=== PATIENT | female | born 1970 | race Caucasian/White ===

== ENCOUNTER 2020-03-11 10:50 | Day surgery (SDC) | payer OTHER ==
[~2020-03-11] VITALS: Ht 157.5 cm; Wt 77.6 kg
[~2020-03-11 10:50] MED LIST: GLUCOPHAGE1000 MG PO; HUMULIN N100 UNIT/1; IBUPROFEN800 MG PO; NORCO 5-325 TA1 EACH PO; NOVOLOG100 UNIT/2 SUB-Q; OZEMPIC1 MG/0.75 SUB-Q; VITAMIN D21250 MCG PO; WELLBUTRIN XL150 MG PO
--- NOTE | 2020-03-11 12:39 | NUR ---
03/11/20 1239 Cecilia Arroyo 1232 PT ARRIVED TO PACU ON RA AND TALKING TO RN. PT DENIES PAIN AND NAUSEA. VSS. 1235 PT ROLLED TO BACK AND IS SITTING IN HIGH FOLWERS.
--- NOTE | 2020-03-13 18:32 | PATH ---
[facility] [address] [facility] [place], [place] [address] Signed SPECIMEN(S): C COMPREHENSIVE FLOW CYTOMETRY ONLY, BM EDTA TUBE SPECIMEN(S): A BONE MARROW - CORE SPECIMEN(S): B BONE MARROW - ASPIRATION CLINICAL HISTORY: 49-year-old white female with elevated WBC, decreased RBC, decreased platelets. Evaluate for MDS/MPN overlap syndrome. D72.829 (elevated white blood cell count, unspecified) DIAGNOSIS SUMMARY: A. Peripheral blood, smear: - Mild normochromic anemia. - Mild leukocytosis with absolute mature neutrophilia. - Thrombocyopenia. B. Bone marrow, aspirate, clot section, and core biopsy: - Hypercellular marrow (90%) with trilineage hematopoiesis and occasional atypical megakaryocytes seen. - No increase in blasts. - Mild reticulin fibrosis (MF-1 of 3). - See Diagnostic Comment. DIAGNOSTIC COMMENT: The patient's history of leukocytosis since 2013 is noted. She now also has a mild anemia and significant thrombocytopenia. The bone marrow aspirate smears are hemodilute and aspiculate, limiting assessment for morphologic dysplasia by this modality, although the neutrophils which are present in the peripheral blood do not demonstrate overt dysplastic features. The bone marrow core biopsy is hypercellular for age (90%) and shows trilineage hematopoiesis with an estimated M:E ratio of approximately 2-3:1. Blasts are not increased. Scattered megakaryocytes are present, some of which demonstrate atypical nuclear segmentation. There is some loose clustering of megakaryocytes and fibrosis is mildly increased. 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 Of note, flow cytometry also demonstrated a small atypical T-cell population PATIENT NAME: CHE INFANTE PATHOLOGY DATE OF : 74 REPORT #: [id number] PHYSICIAN: TERESA PATHOLOGY PCP: ASH BEYER DO REPORT IS CONFIDENTIAL AND NOT TO BE RELEASED WITHOUT AUTHORIZATION [facility] [address] [place] [address] Signed (3%) of all events expressing dim CD2, dim CD5, and partial dim CD56. A CD3 immunohistochemical stain performed on the core biopsy demonstrates scattered and small clusters of T-cells, which are small in size. These overall T-cell findings are favored to represent a reactive process. As part of [facility] Quality Improvement Program, this case was reviewed by another member of our pathology staff. JCH:GP:slh:C2NR PERIPHERAL BLOOD: HEMOGRAM ([facility], 03/11/2020): WBC 11.8 K/uL, RBC 4.2 M/uL, HGB 11.0 g/dL, HCT 33.7%, MCV 80.3 fL, MCH 26 pg, MCHC 33 g/dL, RDW 19.4%, PLT 38 K/uL. MANUAL DIFFERENTIAL COUNT (200 cells, performed by pathologist): Segmented neutrophils 77%, band neutrophils 1%, lymphocytes 18%, monocytes 2%, eosinophils 1.5%, basophils 0.5%. The red cells are mildly decreased in number and are normochromic and appear normocytic, although we note the marginally decreased MCV. There is mild to moderate anisopoikilocytosis with occasional ovalocytes and rare microcytes. Occasional polychromatophilic erythrocytes are seen, but polychromasia is not significantly increased. Leukocytes are mildly increased in number and are composed predominantly of mature neutrophils which demonstrate granular cytoplasm and generally unremarkable nuclear segmentation. Overt dysplastic features are not seen. A few degenerating cells are present, although a definite circulating blast population is not appreciated. Lymphocytes are predominantly small and mature. There is no significant monocytosis, eosinophilia, or basophilia. Platelets are decreased in number and include occasional giant forms. BONE MARROW: BONE MARROW ASPIRATE: The bone marrow aspirate smears are hemodilute and aspiculate, reflecting predominantly peripheral blood elements. Due to significant hemodilution, a formal 200-cell count will not be performed. BONE MARROW CORE BIOPSY AND ASPIRATE CLOT SECTION CELL BLOCK: The bone marrow core biopsy is hypercellular for age (90%). Megakaryocytes are predominantly large and demonstrate lobulated nuclei. A few atypical appearing hypersegmented forms are seen. Some loose clustering of megakaryocytes of a few megakaryocytes is present. The estimated M:E ratio is approximately 2-3:1. Blasts do not PATIENT NAME: CHE INFANTE PATHOLOGY DATE OF : 74 REPORT #: [id number] PHYSICIAN: TERESA PATHOLOGY PCP: ASH BEYER DO REPORT IS CONFIDENTIAL AND NOT TO BE RELEASED WITHOUT AUTHORIZATION [address] [address] Signed appear increased, although occasional islands of proerythroblasts are seen. Trabecular bone is normal. The bone marrow clot sections demonstrate blood only. SPECIAL STAINS (with adequate controls): - Iron stain (aspirate smear): No bone marrow spicules are present. - Iron stain (block B1): No bone marrow spicules are present. - Iron stain (block A1): Stainable iron is not seen on this decalcified core biopsy. - Reticulin (block A1): Mildly increased reticulin fibrosis (MF-1 of 3). IMMUNOHISTOCHEMICAL STAINS (block A1): - CD34: No increase in blasts, rare cells staining. - CD117: No increase in blasts, few scattered cells staining, including mast cells. - MPO: Highlights myeloids precursors, confirming M:E ratio. - CD71: Highlights erythroid precursors, confirming M:E ratio. - Factor VIII: Gillespie scattered megakaryocytes, majority of which are large and lobulated, some loose clustering of a few megakaryocytes seen. Few smaller forms seen. - CD3: Positive in scattered and small aggregates of T-cells, small in size. - CD20: Positive in rare B-cells. - CD138: Scattered plasma cells seen, some in perivascular distribution, not significantly increased. IN SITU HYBRIDIZATION STAINS (block A1): - Teaticket: Stains scattered plasma cells, polytypic pattern. - Lambda: Stains scattered plasma cells, polytypic pattern. [facility] FLOW CYTOMETRY: Bone marrow aspirate, flow cytometry: - Hemodilute specimen. - Small population of atypical T-cells (3%) identified. - No increase in blasts. - No clonal B-cell population. - See comment. COMMENT: In summary, flow cytometry reveals a small population of T-cells (11% of lymphocytes, 3% of total events) expressing CD2(dim), CD3, CD5(dim), CD7, CD8, and CD56(dim,minor subset), and negative for CD4 and CD16. The phenotype is atypical. The significance of this small population of atypical T-cells is indeterminate, which can be seen in reactive PATIENT NAME: CHE INFANTE PATHOLOGY DATE OF : 74 REPORT #: [id number] PHYSICIAN: TERESA PATHOLOGY PCP: ASH BEYER DO REPORT IS CONFIDENTIAL AND NOT TO BE RELEASED WITHOUT AUTHORIZATION [facility] [address] [place], [place] [address] Signed conditions such as viral infection, autoimmune, etc., or a clonal T-cell proliferation. Correlation with clinical and morphologic findings is recommenced for full evaluation. FLOW CYTOMETRY ANALYSIS: FLOW DIFFERENTIAL (% Total CD45 vs. SSC gating): Myeloid 67%; Lymphoid 27%; Monocyte 3%; Dim CD45/Blast: 0.5%. Cell Count: 5.3 x 10*3/uL. POPULATION ANALYSIS: BLASTS: Analysis of the dim CD45 gate demonstrates 0.4% myeloblasts by CD34/CD117. LYMPHOID CELLS: The lymphocyte gate comprises 27% of total events and includes 86% T-cells with a CD4:CD8 ratio of 1.3:1. A small atypical T-cell population is detected (11% of lymphocytes, 3% of total events) expressing CD45 MOD, CD3 MOD, CD8 MOD, CD7 MOD, CD2 DIM, CD5 DIM, CD56 DIM (minor subset) while negative for CD4 and CD16. 3% of lymphocytes are polyclonal B-cells with a kappa:lambda ratio of 1.4:1. 9% of lymphocytes are NK-cells. MYELOID CELLS: The myeloid population comprises 67% of the total events. Changes suggestive of hemodilution are observed. MONOCYTES: The monocyte population comprises 3% of the total events. Monocytes are not increased. No aberrant immunophenotypic expression is detected. PLASMA CELLS: A significant plasma cell population is not detected in the neg-dimCD45/CD38 screening gate. ANTIBODIES USED: KAPPA, LAMBDA, CD20, CD10, CD19, CD23, CD38, FMC7, CD16, CD56, CD8, CD5, CD2, CD4, CD7, CD3, CD14, CD33, CD13, HLADR, CD34, CD117, CD15, CD45: TOTAL ANTIBODIES USED: 24. JLR FINAL DIAGNOSIS PERFORMED BY: Andria Segovia MD, Pathologist Mar 12 2020 1:16PM CYTOGENETICS: Pending, to be reported by addendum. FISH ANALYSIS: Pending, to be reported by addendum. MOLECULAR / PCR: Pending, to be reported by addendum. GROSS DESCRIPTION: PATIENT NAME: CHE INFANTE PATHOLOGY DATE OF : 74 REPORT #: [id number] PHYSICIAN: TERESA PATHOLOGY PCP: ASH BEYER DO REPORT IS CONFIDENTIAL AND NOT TO BE RELEASED WITHOUT AUTHORIZATION [address] [address] Signed The specimen has two parts. A. The specimen is received in formalin, labeled and designated "Infante, bone marrow core," and consists of a 2.2 cm long and 0.2 cm in diameter core of taylor firm bone, submitted entirely in (A1) after decalcification in Immunocal for approximately 1.5 hours. B. The specimen is received in formalin, labeled and designated "Arelis, bone marrow clot," and consists of a 1.6 x 1.6 x 0.3 cm fragment of red soft blood clot, submitted entirely in (B1). nz:KRISTIE:nas ADDITIONAL NOTES: This test was developed and its performance characteristics determined by [facility]. It has not been cleared or approved by the US Food and Drug Administration. The FDA does not require this test to go through premarket FDA review. This test is used for clinical purposes. It should not be regarded as investigational or for research. This laboratory is certified under the Clinical Laboratory Improvement Amendments (CLIA) as qualified to perform high complexity clinical laboratory testing. Immunohistochemical and/or in situ hybridization studies were performed on this case with the appropriate positive controls that react as expected. This test was developed and its performance characteristics determined by [facility]. It has not been cleared or approved by the U.S. Food and Drug Administration. The FDA has determined that such clearance or approval is not necessary. This test is used for clinical purposes. It should not be regarded as investigational or for research. [facility] is certified under the Clinical Laboratory Improvement Amendments of 1988 (CLIA) as qualified to perform high complexity clinical laboratory testing. In this case, certain antibodies were performed by both immunohistochemistry and flow cytometry analysis because flow cytometry analysis did not fully explain all the light microscopic findings. Immunohistochemistry aided in the analysis. Both methods are deemed medically necessary in this case. PERFORMING LABORATORY: Professional interpretation was performed by [facility], [facility], [address] [place] [address] (Principal Mechanical Engineer: Rafa Parsons M.D.; CLIA#: [id number]). PATIENT NAME: CHE INFANTE PATHOLOGY DATE OF : 74 REPORT #: [id number] PHYSICIAN: TERESA LUJAN PCP: ASH BEYER DO REPORT IS CONFIDENTIAL AND NOT TO BE RELEASED WITHOUT AUTHORIZATION [address] [place], [place] [address] Signed Professional interpretation was performed by [facility], [facility], [address] [place], [place] [address], [place] [address] (Principal Mechanical Engineer: Aguila Alcantara Jr., M.D., [facility]; IA#: [id number]). IMAGES: [id number]: [id number]: [id number] Diagnostician: Sara Perez MD Pathologist Electronically Signed 03/13/2020 Copies: ~ PATIENT NAME: CHE INFANTE PATHOLOGY DATE OF : 74 REPORT #: [id number] PHYSICIAN: TERESA LUJAN PCP: ASH BEYER DO REPORT IS CONFIDENTIAL AND NOT TO BE RELEASED WITHOUT AUTHORIZATION
== END 2020-03-11 12:55 | disposition home or self-care (01) ==
LOC: OPS 10:50 → DS 12:00 → OPS 12:00
PROVIDERS: Specialist
PROC: 079T3ZX Drainage of Bone Marrow, Percutaneous Approach, Diagnostic (ICD-10-PCS; 2020-03-11)
PROC: 07DR3ZX Extraction of Iliac Bone Marrow, Percutaneous Approach, Diagnostic (ICD-10-PCS; principal; 2020-03-11 12:00)
DX: D72.829 Elevated white blood cell count, unspecified (principal); D69.6 Thrombocytopenia, unspecified; D64.9 Anemia, unspecified; D75.89 Other specified diseases of blood and blood-forming organs; E11.22 Type 2 diabetes mellitus with diabetic chronic kidney disease; I12.9 Hypertensive chronic kidney disease with stage 1 through stage 4 chronic kidney disease, or unspecified chronic kidney disease; N18.3 Chronic kidney disease, stage 3 (moderate); F32.9 Major depressive disorder, single episode, unspecified; J45.909 Unspecified asthma, uncomplicated; Z87.891 Personal history of nicotine dependence; Z79.4 Long term (current) use of insulin; Z79.899 Other long term (current) drug therapy; Z88.5 Allergy status to narcotic agent
CPT/HCPCS: 80053; 83021; 83615; 84703; 85025; 85045; 86023; 86880; 99152; 99153; J2250; J3010; J7121

== ENCOUNTER 2020-11-05 06:16 | Day surgery (SDC) | payer OTHER ==
[~2020-11-05] VITALS: Ht 157.5 cm; Wt 71.4 kg
[~2020-11-05 06:16] MED LIST changes: +PROAIR HFA8.5 GM INH
--- NOTE | 2020-11-05 08:11 | NUR ---
11/05/20 0811 Emily Nelson 0806- PT TO PACU IN LL POSITION. RESPONDS TO VERBAL AND TACTILE STIMULI AND FALLS QUICKLY BACK TO SLEEP. BREATHING EASY AND UNLABORED. SPO2 >95% ON 3L O2 VIA NC. PT ENCOURAGED TO TAKE DEEP BREATHS AND PASS GAS. 0811- PT OPENS EYES PERIODICALLY. DENIES PAIN. SPO2 >95%. O2 TITRATED DOWN TO ROOM AIR. VSS.
--- NOTE | 2020-11-10 08:08 | OR ---
[facility] [address] [place], [place] [address] Signed DATE OF OPERATION: 11/05/2020 SURGEON: Ngozi Catalan MD PREOPERATIVE DIAGNOSES: 1. Thickened transverse colon on CT scan. 2. Rectal bleeding. POSTOPERATIVE DIAGNOSIS: A 4 mm polypoid lesion at 90 cm (transverse colon). PROCEDURE: Colonoscopy with hot biopsy. ESTIMATED BLOOD LOSS: None. 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 She is known to have issues with her white blood cells in her platelets. She had some rectal bleeding earlier in the year; however, none since August of this year. The CT scan back in March 2020 showed a thickened transverse colon. Consequently, she was asked to see me for a colonoscopy. She told me there is no family history of colon cancer or polyps. In the office, I gave her a pamphlet on colonoscopy. We looked at that together along with the risks including, but not limited to gas bloating, crampy abdominal pain, bleeding, perforation requiring surgery, and missed diagnosis. We also reviewed the need for IV conscious sedation. She had expressed understanding and wished to proceed. PROCEDURE NOTE: Ronald was taken into our endoscopy suite and placed in the left lateral decubitus position. She was given a total of 8 mg of Versed and 150 mcg of fentanyl to cover the case. A digital rectal exam was performed, and she had small external hemorrhoids. After this, the adult colonoscope was introduced and advanced all around into the cecum under direct visualization of camera without difficulty. Her prep was quite excellent. We could easily see the appendiceal orifice and the ileocecal valve. The scope was slowly withdrawn. We took pictures throughout for photodocumentation. We found what appears to be an inflammatory polypoid lesion at 90 cm. We believe this is in the mid to distal transverse colon. It was easily biopsied and destroyed completely with the hot biopsy forceps. The rest of the colon was unremarkable. The rectum was Electronically Signed By: NGOZI CATALAN MD 11/10/20 0808 PATIENT NAME: RONALD BEATTY OPERATIVE REPORT DATE OF : 74 REPORT #: [id number] PHYSICIAN: NGOZI CATALAN MD PCP: SEVERO BEYER DO REPORT IS CONFIDENTIAL AND NOT TO BE RELEASED WITHOUT AUTHORIZATION [address] [address] Signed unremarkable. Upon retroflexion of the scope, there was no additional pathology noted above the anal canal. After this, the gas was suctioned out. The colonoscope removed. Ronald tolerated her procedure quite well. RECOMMENDATIONS: I will see Ronald back in my office in 7 to 14 days to review her results. Ngozi Catalan MD ALB/MODL /[id number] cc: MD Severo Trujillo DO Copies: MELANIE CERVANTES MD, FRANK E DO ~ Electronically Signed By: NGOZI CATALAN MD 11/10/20 0808 PATIENT NAME: BEATTYRONALD OPERATIVE REPORT DATE OF : 74 REPORT #: [id number] PHYSICIAN: NGOZI CATALAN MD PCP: SEVERO BEYER DO REPORT IS CONFIDENTIAL AND NOT TO BE RELEASED WITHOUT AUTHORIZATION
--- NOTE | 2020-11-11 14:22 | PATH ---
[facility] [address] [place], [place] [address] Signed SPECIMEN(S): A COLON POLYP AT 100 CM SPECIMEN SOURCE: A. COLON POLYP AT 100 CM CLINICAL HISTORY: Rectal bleeding; thickened transverse colon, chronic elevated WBC; low platelets. Post-op: Polyp x1; external hemorrhoids. MICROSCOPIC DESCRIPTION: Histologic sections of all submitted blocks are examined by light microscopy. These findings, together with the gross examination, support the pathologic diagnosis. FINAL PATHOLOGIC DIAGNOSIS: Colon, polyp at 100 cm, polypectomy: - Fragments of tubular adenoma with ulcer and focal exuberant granulation tissue. - Negative for parasites or viral inclusions. - Negative for high-grade dysplasia or carcinoma. COMMENT: Sections demonstrate fragments of a tubular adenoma and ulcer with exuberantly reactive-appearing granulation tissue. No viral inclusions or parasitic organisms are seen on HE stain. Immunohistochemical stains (with appropriately staining controls) were performed. Pancytokeratin (AE1/AE3) is negative for invasive carcinoma. CMV stain is negative, arguing against CMV infection. As part of [facility] Quality Improvement Program, this case was reviewed by another member of our pathology staff. NAL:cml:C2NR GROSS DESCRIPTION: The specimen, labeled "Ronald Infante, #1," and designated on the requisition "colon polyp at 100 cm," is received in formalin and consists of three taylor soft tissue fragment(s) that measure 0.3-0.4 cm in greatest dimension. The specimen is entirely submitted in cassette (A1). FB (under the direct supervision of a pathologist) The Gross Description was prepared using a voice recognition system. The report was reviewed for accuracy; however, sound-alike word errors, addition and/or deletions may occur. If there is any question about this report, please contact Client Services. PATIENT NAME: RONALD INFANTE PATHOLOGY DATE OF : 74 REPORT #: [id number] PHYSICIAN: TERESA PATHOLOGY PCP: ASH BEYER DO REPORT IS CONFIDENTIAL AND NOT TO BE RELEASED WITHOUT AUTHORIZATION [facility] [address] [place], [place] [address] Signed ADDITIONAL NOTES: Immunohistochemical and/or in situ hybridization studies were performed on this case with the appropriate positive controls that react as expected. This test was developed and its performance characteristics determined by [facility]. It has not been cleared or approved by the U.S. Food and Drug Administration. The FDA has determined that such clearance or approval is not necessary. This test is used for clinical purposes. It should not be regarded as investigational or for research. [facility] is certified under the Clinical Laboratory Improvement Amendments of 1988 (CLIA) as qualified to perform high complexity clinical laboratory testing. PERFORMING LABORATORY: The technical component was performed by [facility], [address] [place] [address] (Wet Process Head Miller: Lina Nicolas MD; CLIA# [id number]). [facility], [address] [address] (CLIA# [id number]). Diagnostician: María Mcmahan MD Pathologist Electronically Signed 11/11/2020 Copies: ~ PATIENT NAME: RONALD INFANTE PATHOLOGY DATE OF : 74 REPORT #: [id number] PHYSICIAN: TERESA PATHOLOGY PCP: ASH BEYER DO REPORT IS CONFIDENTIAL AND NOT TO BE RELEASED WITHOUT AUTHORIZATION
== END 2020-11-05 08:40 | disposition home or self-care (01) ==
LOC: OPS 06:16 → DS 06:19 → OPS 06:45 → DS 06:45 → OPS 08:40
PROVIDERS: ATTEND Colon & Rectal Surgery
PROC: 0DBL8ZX Excision of Transverse Colon, Via Natural or Artificial Opening Endoscopic, Diagnostic (ICD-10-PCS; principal; 2020-11-05 06:45)
DX: K62.5 Hemorrhage of anus and rectum (principal); D12.3 Benign neoplasm of transverse colon; K64.4 Residual hemorrhoidal skin tags; I12.9 Hypertensive chronic kidney disease with stage 1 through stage 4 chronic kidney disease, or unspecified chronic kidney disease; N18.30 Chronic kidney disease, stage 3 unspecified; E11.22 Type 2 diabetes mellitus with diabetic chronic kidney disease; K21.9 Gastro-esophageal reflux disease without esophagitis; J45.909 Unspecified asthma, uncomplicated; E28.2 Polycystic ovarian syndrome; F41.9 Anxiety disorder, unspecified; Z87.891 Personal history of nicotine dependence; Z79.4 Long term (current) use of insulin; Z79.899 Other long term (current) drug therapy; Z88.5 Allergy status to narcotic agent
CPT/HCPCS: 84703; 99153; G0500; J2250; J3010; J7121

== ENCOUNTER 2022-08-09 16:24 | Emergency (ER) | payer OTHER ==
[~2022-08-09] VITALS: Ht 157.5 cm; Wt 66.0 kg
[~2022-08-09 16:24] MED LIST changes: +CLOPIDOGREL75 MG PO; +FAMOTIDINE20 MG PO; +IPRAT-ALBUT 0.5-3 ML INH; +LISINOPRIL20 MG PO; +LO-DOSE ASPIRIN81 MG PO; +OZEMPIC1 MG/0.71 SUB-Q; +ROSUVASTATIN CA40 MG PO
[2022-08-09] MEDS ORDERED: CLONIDINE HCL0.1 MG PO (18:44)
--- NOTE | 2022-08-11 19:51 | EKG ---
[facility] [address] [place] [address] Signed Normal sinus rhythm Left axis deviation Moderate voltage criteria for LVH, may be normal variant ( R in aVL , Haugen product ) Septal infarct (cited on or before 12-FEB-2022) Abnormal ECG When compared with ECG of 12-FEB-2022 14:10, QRS duration has decreased ST no longer depressed in Lateral leads Confirmed by Betsey Rodriguez MD () on 08/11/2022 7:50:47 PM Electronically Signed By: BETSEY RODRIGUEZ MD 08/11/221950 PATIENT NAME: CHE BEATTY Electrocardiogram DATE OF : 74 PHYSICIAN: BETSEY RODRIGUEZ MD REPORT #: [id number] REPORT IS CONFIDENTIAL AND NOT TO BE RELEASED WITHOUT AUTHORIZATION
== END 2022-08-09 19:14 | disposition home or self-care (01) ==
LOC: ED 16:24
DX: I10 Essential (primary) hypertension (principal); I16.0 Hypertensive urgency; E11.22 Type 2 diabetes mellitus with diabetic chronic kidney disease; Z79.4 Long term (current) use of insulin; I12.9 Hypertensive chronic kidney disease with stage 1 through stage 4 chronic kidney disease, or unspecified chronic kidney disease; N18.30 Chronic kidney disease, stage 3 unspecified; Z87.891 Personal history of nicotine dependence; Z88.5 Allergy status to narcotic agent; Z79.899 Other long term (current) drug therapy; Z79.82 Long term (current) use of aspirin
CPT/HCPCS: 36415; 80053; 84484; 85025; 93005; 93010; 96374; 99283-25; J2060

== ENCOUNTER 2022-08-27 10:17 | Inpatient (IN) | payer OTHER ==
[~2022-08-27] VITALS: Ht 157.5 cm; Wt 66.7 kg
[~2022-08-27 10:17] MED LIST changes: +CLONIDINE HCL0.1 MG PO
--- OUTSIDE RECORDS SUMMARY | 2022-08-27 10:20 | XMS ---
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 EMarlen VISIT COUNT (12 MO.) 3 [facility] TOTAL 3 NOTE: Visits indicate total known visits. 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 [place] TYPE: Observation COMPLAINT: - TIA DIAGNOSES: - Anxiety disorder, unspecified - terminal manager (current) use of insulin - Essential (primary) hypertension - Allergy status to narcotic agent - Personal history of nicotine dependence - Transient cerebral ischemic attack, unspecified - Type 2 diabetes mellitus without complications - Hyperlipidemia, unspecified - Carotid artery syndrome (hemispheric) - Contact with and (suspected) exposure to COVID-19 [email or web address]
[2022-08-27] MEDS ORDERED: WELLBUTRIN SR150 MG PO (11:09)
[2022-08-27] MEDS ORDERED: VENTOLIN HFA18 GM INH (14:28)
[2022-08-27] MEDS ORDERED: ADULT LOW DOSE81 MG PO (14:29)
[2022-08-27] MEDS ORDERED: OZEMPIC2 MG/0.75 SUB-Q (14:31)
[2022-08-27] MEDS ORDERED: LISINOPRIL-HCT1 EACH PO (14:33)
[2022-08-27] MEDS ORDERED: CRESTOR20 MG PO (14:34)
[2022-08-27] MEDS ORDERED: CIPROFLOXACIN250 MG PO (14:36)
[2022-08-27] MEDS ORDERED: CLOPIDOGREL75 MG PO (14:39)
[2022-08-27] MEDS ORDERED: ROSUVASTATIN CA40 MG PO (14:39)
--- NOTE | 2022-08-27 15:15 | NUR ---
PT ARRIVED TO FLOOR VIA STRETCHER. PT TRANSFERED SELF TO BED. VITALS TAKEN AND STABLE. ADMISSION COMPLETED. PT WITH SOME FORGETFULNESS BUT IS FULLY ORIENTED. ORIENTED TO ROOM. CALL LIGHT IN REACH.
--- NOTE | 2022-08-27 16:18 | NUR ---
MED REC COMPLETE
--- NOTE | 2022-08-27 17:03 | NUR ---
TELE WITH ELEVATED HEART RATE. THIS NURSE AND HORTENSIA RN TO BEDSIDE. PT FOUND IN BED POSTURING AND DROOLING BLOOD TINGED SPUTUM FROM [facility]. PT DID NOT RESPOND TO ANY STIMULI. [facility] OCAMPO CALLED. SEE CODE BLUE FORM.
--- NOTE | 2022-08-27 17:35 | NUR ---
52 year OLD FEMALE PATIENT OF DR. RODRIGUEZ ADMITTED TO CCU ROOM 128 FROM MED/SURG/CT WITH DX OF TIA, HAD SEIZURE ON MEDICAL FLOOR. BLUE TEAM WAS CALLED ON MED-SURG, PATIENT RECIEVED ATIVAN 2 MG AND HALDOL 2 MG IV. IN ROOM. ORDERS RECIEVED TO REPEAT CT OF HEAD. THIS RN WITH PATIENT TO CT. UPON ADMIT TO CCU PATIENT IS ALERT, ORIENTED, COOPERATIVE. IS NOT AWARE OF RECENT EVENT, IS SOMEWHAT SLOW TO ANSWERE QUESTIONS. HAS 2 SL IV SITES ONE IN RFA, OTHER IN LFA.
--- NOTE | 2022-08-27 18:00 | NUR ---
SLEEPING, NO DISTRESS NOTED.
--- NOTE | 2022-08-27 18:20 | NUR ---
CRITICAL VALUE LA-8.1, CALLED TO
--- NOTE | 2022-08-27 19:30 | NUR ---
REPORT TO NEXT SHIFT.
--- NOTE | 2022-08-27 19:30 | NUR ---
REPORT RECEIVED FROM DAY SHIFT RN. PT IS RESTING IN BED W/ HER EYES CLOSED AND APPEARS COMFORTABLE. CALL LIGHT AT HAND. PT'S IS SITTING AT BEDSIDE. VSS. RESPIRATIONS EVEN AND UNLABORED. NO DISTRESS NOTED. WILL CONT TO MONITOR.
--- NOTE | 2022-08-27 22:05 | NUR ---
PT IS MORE AWAKE AT THIS TIME. ALERT AND ORIENTED X4. PT'S REMAINS AT BEDSIDE. PT UP TO BEDSIDE COMMODE W/ MINIMAL ASSIST. TOLERATING IVF ORDERED. VSS. RESPIRATIONS EVEN AND UNLABORED. NO APPARENT DISTRESS NOTED. PT W/ MUJICA AND NAUSEA- PRN'S ADMINISTERED ORDERED. CALL LIGHT AT HAND. WILL CONT TO MONITOR.
--- NOTE | 2022-08-28 00:19 | NUR ---
PT IS RESTING IN BED AND APPEARS COMFORTABLE. VSS. NO DISTRESS NOTED. TOLERATING IVF. CALL LIGHT AT HAND. WILL CONT TO MONITOR.
--- NOTE | 2022-08-28 04:29 | NUR ---
PT IS RESTING IN BED W/ HER EYES CLOSED AND APPEARS COMFORTABLE. VSS. CALL LIGHT AT HAND. NO DISTRESS NOTED. WILL CONT TO MONITOR.
--- NOTE | 2022-08-28 06:07 | NUR ---
PT AMBULATED TO BR W/ SBA THEN ASSISTED BACK TO BED. APPEARS COMFORTABLE AT THIS TIME. CALL LIGHT AT HAND. VSS. NO DISTRESS NOTED. TOLERATING IVF. WILL CONT TO MONITOR.
--- NOTE | 2022-08-28 07:50 | NUR ---
REPORT RECEIVED FROM LORETTA RN. IN TO CHECK ON PT, AWAKE IN BED. UP TO BATHROOM TO VOID WITH SBA, THEN BACK TO BED. PLAN FOR THE DAY DISCUSSED, PT ASKING ABOUT BREAKFAST. PT SEEMS TO HAVE TROUBLE FINDING THOUGHTS AND WORDS AND IS SLOW AT TIMES TO GET THINGS OUT-REPORTS IT HAS BEEN LIKE THIS SINCE HER TIA IN JANUARY. ASSESSMENT DONE. IVF INFUSING. TONGUE HAS SORE ON LEFT LATERAL SIDE WHERE SHE BIT IT DURING YESTERDAYS SEIZURE-STATES THAT THIS IS PRETTY SORE. PT STATES THAT SHE CONT TO FEEL SLIGHTLY DIZZY AT TIMES.
--- NOTE | 2022-08-28 07:51 | NUR ---
REPORT RECEIVED FROM LORETTA RN. IN TO CHECK ON PT, AWAKE IN BED. UP TO BATHROOM TO VOID WITH SBA, THEN BACK TO BED. PLAN FOR THE DAY DISCUSSED, PT ASKING ABOUT BREAKFAST. PT SEEMS TO HAVE TROUBLE FINDING THOUGHTS AND WORDS AND IS SLOW AT TIMES TO GET THINGS OUT-REPORTS IT HAS BEEN LIKE THIS SINCE HER TIA IN JANUARY. ASSESSMENT DONE. IVF INFUSING. TONGUE HAS SORE ON LEFT LATERAL SIDE WHERE SHE BIT IT DURING YESTERDAYS SEIZURE-STATES THAT THIS IS PRETTY SORE. DENIES ANY OTHER PAIN OR NEEDS AT THIS TIME.
--- NOTE | 2022-08-28 08:01 | NUR ---
DR RODRIGUEZ IN TO SEE PT.
--- NOTE | 2022-08-28 08:31 | NUR ---
PT BROUGHT IN BREAKFAST. BLOOD SUGAR 88. RAISED BED TO SIT UP FOR BREAKFAST AND PT C/O HEADACHE AND ASKED TO BE LOWERED BACK DOWN. AFTER APPROX 10 MINUTES OF LYING FLAT PT THEN ASKS FOR PAIN MEDICATION FOR HEADACHE, STATES THAT WHEN HER HEAD IS RAISED THE PAIN IS 9/10, WHEN LOWERED IT HAS BEEN GOING AWAY BUT THIS TIME IT IS NOT GOING AWAY AND PAIN IS 3/10. ASKED IF THIS IS NORMAL FOR HER OR IF IT IS NEW AND SHE SAID IT HAS BEEN GOING ON "SINCE I GOT TO THE HOSPTIAL". WILL GIVE PRN TYLENOL WITH AM MEDS AND REASSESS.
--- NOTE | 2022-08-28 12:30 | NUR ---
DR RODRIGUEZ ROUNDING ON UNIT, UPDATE GIVEN. PTS DAUGHTER THEN IN TO SEE HER, PT ASSISTED WITH GETTING SET UP FOR LUNCH. REPORTS HEADACHE IS "MUCH BETTER".
--- NOTE | 2022-08-28 12:43 | NUR ---
PT UP WITH PT, STATES HEADACHE IS RETURNING ONCE SHE GETS UP
--- NOTE | 2022-08-28 14:48 | NUR ---
IN TO RECHECK PTS BLOOD SUGAR-89. PT C/O HEADACHE HAS RETURNED, 5/10 REQUESTS PAIN MEDICATION. TYLENOL GIVEN. PT THEN UP TO BR, SLIGHTLY DIZZY, SBA, HR STEADY WHILE UP, BACK TO BED.
--- NOTE | 2022-08-28 17:28 | EKG ---
[facility] [address] [place] [address] Signed Normal sinus rhythm Left axis deviation Minimal voltage criteria for LVH, may be normal variant ( [place] product ) Septal infarct (cited on or before 12-FEB-2022) Abnormal ECG When compared with ECG of 09-AUG-2022 17:48, No significant change was found Confirmed by Betsey Rodriguez MD () on 08/28/2022 5:27:59 PM Electronically Signed By: BETSEY RODRIGUEZ MD 08/28/22 1728 PATIENT NAME: CHE BEATTY Electrocardiogram DATE OF : 74 PHYSICIAN: BETSEY RODRIGUEZ MD REPORT #: [id number] REPORT IS CONFIDENTIAL AND NOT TO BE RELEASED WITHOUT AUTHORIZATION
--- NOTE | 2022-08-28 19:30 | NUR ---
REPORT RECEIVED FROM DAY SHIFT RN. PT IS SITTING IN BED W/ CALL LIGHT AT HAND. VSS. NO DISTRESS NOTED. TOLERATING IVF ORDERED. WILL CONT TO MONITOR.
--- NOTE | 2022-08-28 20:13 | NUR ---
PT AMBULATED IN THE HALLWAY TO TAKE A SHOWER. UP TO SINK TO BRUSH HER TEETH AND PUT A CLEAN GOWN ON. BED LINENS CHANGED. IVF RESTARTED AFTER SHOWER. PT ABLE TO COMB HER HAIR. VSS. NO DISTRESS NOTED. CALL LIGHT AT HAND. WILL CONT TO MONITOR.
--- NOTE | 2022-08-28 23:00 | NUR ---
PT IS LYING IN BED AND APPEARS COMFORTABLE. VSS. CALL LIGHT AT HAND. WILL CONT TO MONITOR.
--- NOTE | 2022-08-29 02:00 | NUR ---
VSS. TOLERATING IVF ORDERED. UP TO BR W/ SBA. CALL LIGHT AT HAND. WILL CONT TO MONITOR.
--- NOTE | 2022-08-29 04:00 | NUR ---
PRN PAIN MEDICATION ADMINISTERED. PT UP TO BR W/ SBA. VSS. RESPIRATIONS EVEN AND UNLABORED. NO DISTRESS NOTED. CALL LIGHT AT HAND. WILL CONT TO MONITOR.
--- NOTE | 2022-08-29 08:35 | NUR ---
PATIENT HAS GONE TO AND RETURNED FROM MRI. DR. RAM AT BEDSIDE FOR ROUTINE EVALUATION. 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 PATIENT REPORTS MILD DIZZINESS AND SLIGHTLY BLURRED OR DOUBLE VISION AT THIS TIME WHICH IS NOT HER NORMAL. NEW ORDERS TO FOLLOW. PATIENT ABLE TO FOLLOW COMMANDS, CONVERSATION, AND ANSWER QUESTIONS APPROPRIATELY. PATIENT STATES SHE LIKES TO HAVE FAMILY ON THE PHONE WHEN CAREGIVERS ARE IN THE ROOM WITH INFORMATION SO SHE HAS ADDITIONAL PEOPLE UNDERSTANDING WHAT CARES NEED TO BE COMPLETED DUE TO HER MEMORY ISSUES. PATIENT ABLE TO AMBULATE TO BATHROOM AND IS CURRENTLY EATING WITHOUT DIFFICULTY. PATIENT DENIES ANY NEEDS AT THIS TIME. PERSONAL ITEMS AND CALL LIGHT WITHIN REACH.
--- NOTE | 2022-08-29 10:40 | NUR ---
PAIENT LAYING IN BED ON STOMACH TALKING ON CELL PHONE. PATIENT DENIES NEEDS AT THIS TIME. NO FURTHER COMPLAINTS OF HEADACHED. PATIENT DENIES NEEDS. PERSONAL ITEMS AND CALL LIGHT WITHIN REACH.
--- NOTE | 2022-08-29 11:35 | NUR ---
DR. RAM AT BEDSIDE, OK TO DISCHARGE DUE TO MRI BEING NEGATIVE/NORMAL.
--- NOTE | 2022-08-29 12:00 | NUR ---
PATIENT EATING LUNCH IN BED. PATIENT DENIES NEEDS AT THIS TIME. VS TAKEN. PERSONAL ITEMS AND CALL LIGHT WITHIN REACH.
[2022-08-29] MEDS ORDERED: LIPITOR40 MG PO (12:15)
[2022-08-29] MEDS ORDERED: MECLIZINE HCL12.5 MG PO (12:15)
[2022-08-29] MEDS ORDERED: KEPPRA500 MG PO (12:16)
--- NOTE | 2022-08-29 13:00 | NUR ---
DISCHARGE INSTRUCTIONS REVIEWED WITH PATIENT. RETURN TO WORK NOTE GIVEN TO PATIENT. ALL PERSONAL BELONGINGS COLLECTED BY PATIENT FOR DISCHARGE. VS TAKEN. ALL QUESTIONS ANSWERED DURING REVIEW OF DISCHARGE INSTRUCTIONS. DUE TO HOLIDAY, FOLLOW UP APPOINTMENT COULD NOT BE MADE. PATIENT EDUCATED TO CONTACT HER PCP OFFICE FIRST THING TOMORROW MORNING TO MAKE THIS APPOINTMENT WITHIN 3-6 DAYS AND TO ALSO GET HER PCP TO SET UP HER NEUROLOGY REFERRAL. PATIENT TO LEAVE UNIT VIA WHEELCHAIR AND PRIVATE VEHICLE WITH FAMILY. PRESCRIPTION INFORMATION GIVEN TO PATIENT DURING EDUCATION.
--- NOTE | 2022-08-29 14:01 | NUR ---
Patient left unit via wheelchair with YUMIKO Mercado. downstairs for pickup. Patient reminded to take medications from pharmacy, work release note, and discharge instructions. No questions for departure.
== END 2022-08-29 14:00 | disposition home or self-care (01) | DRG 69 ==
LOC: ED 10:17 → MS 10:19 → CCU 17:50
PROVIDERS: ADMIT Family Medicine; ATTEND Family Medicine
DX: G45.9 Transient cerebral ischemic attack, unspecified (principal); R47.01 Aphasia; Z20.822 Contact with and (suspected) exposure to COVID-19; R56.9 Unspecified convulsions; R42 Dizziness and giddiness; E11.22 Type 2 diabetes mellitus with diabetic chronic kidney disease; I12.9 Hypertensive chronic kidney disease with stage 1 through stage 4 chronic kidney disease, or unspecified chronic kidney disease; N18.30 Chronic kidney disease, stage 3 unspecified; Z88.5 Allergy status to narcotic agent; Z79.899 Other long term (current) drug therapy; Z79.02 Long term (current) use of antithrombotics/antiplatelets; Z79.82 Long term (current) use of aspirin; Z79.4 Long term (current) use of insulin; Z86.73 Personal history of transient ischemic attack (TIA), and cerebral infarction without residual deficits; Z87.891 Personal history of nicotine dependence
CPT/HCPCS: 36415; 70450; 70496; 70498; 70551; 71045; 80053; 80061; 80177; 83036; 83605; 83735; 84484; 85025; 85610; 85730; 86850; 86900; 86901; 87040; 93005; 93010; 97161; 99285-25; A9270; C9803; J1630; J1650; J1885; J1953; J2060; J2405; J3475; J7030; Q9967; U0003

== ENCOUNTER 2023-02-02 11:42 | Emergency (ER) | payer OTHER ==
[~2023-02-02] VITALS: Ht 157.5 cm; Wt 67.0 kg
[~2023-02-02 11:42] MED LIST changes: +ADULT LOW DOSE81 MG PO; +CIPROFLOXACIN250 MG PO; +CRESTOR20 MG PO; +KEPPRA500 MG PO; +LIPITOR40 MG PO; +LISINOPRIL-HCT1 EACH PO; +MECLIZINE HCL12.5 MG PO; +OZEMPIC2 MG/0.75 SUB-Q; +VENTOLIN HFA18 GM INH; +WELLBUTRIN SR150 MG PO
--- NOTE | 2023-02-03 16:15 | EKG ---
[facility] [address] [place] [address] Signed Sinus tachycardia Left axis deviation Moderate voltage criteria for LVH, may be normal variant ( R in aVL , [place] product ) Septal infarct (cited on or before 12-FEB-2022) Abnormal ECG When compared with ECG of 27-AUG-2022 11:00, QRS duration has decreased Confirmed by MELANIE LOPEZ MD ([id number]) on 02/03/2023 4:15:41 PM Electronically Signed By: MELANIE LOPEZ MD 02/03/23 1615 PATIENT NAME: CHE BEATTY Electrocardiogram DATE OF : 74 PHYSICIAN: MELANIE LOPEZ MD REPORT #: [id number] REPORT IS CONFIDENTIAL AND NOT TO BE RELEASED WITHOUT AUTHORIZATION
== END 2023-02-02 14:50 | disposition home or self-care (01) ==
LOC: ED 11:42
DX: D46.9 Myelodysplastic syndrome, unspecified (principal); I12.9 Hypertensive chronic kidney disease with stage 1 through stage 4 chronic kidney disease, or unspecified chronic kidney disease; E11.22 Type 2 diabetes mellitus with diabetic chronic kidney disease; N18.30 Chronic kidney disease, stage 3 unspecified; Z87.891 Personal history of nicotine dependence; Z88.5 Allergy status to narcotic agent; Z79.899 Other long term (current) drug therapy; Z79.82 Long term (current) use of aspirin; Z79.4 Long term (current) use of insulin; Z20.822 Contact with and (suspected) exposure to COVID-19
CPT/HCPCS: 36415; 71045; 80053; 81001; 83605; 85025; 85060; 85610; 85730; 87502; 93005; 93010; 99284-25; C9803; U0003

== ENCOUNTER 2023-10-06 12:04 | Emergency (ER) | payer OTHER ==
[~2023-10-06] VITALS: Ht 157.5 cm; Wt 75.5 kg
[2023-10-06 13:08] LABS: BASOPHILS 0.5 % (0-2); EOSINOPHILS 0.8 % (0-6); HEMATOCRIT 43.6 % (35.0-50.0); HEMOGLOBIN 14.7 g/dL (12.0-18.0); LYMPHOCYTES 17.1 % (24-44); MCH 27.8 (27-36); MCHC 33.6 g/dl (30-36); MCV 82.7 fl (81-99); MONOCYTES 3.8 % (0-12); NEUTROPHILS 77.8 % (39-80); PLATELET COUNT 326 K/uL (140-440); RBC 5.28 M/ul (4.3-5.7); RDW 14.6 (10.5-15.0)
[2023-10-06 13:25] LABS: ALBUMIN 4.1 g/dL (3.4-5.0); ANION GAP 15.8 (7-21); BILIRUBIN, TOTAL 0.4 ng/dL (0.2-1.0); BUN/CREATININE RATIO 22.89 (6.0-28.6); CALCIUM 9.2 mg/dL (8.5-10.1); CREATININE, SERUM 0.83 mg/dL (0.55-1.02); POTASSIUM 3.8 mmol/L (3.5-5.1); PROTEIN, TOTAL 8.2 g/dL (6.4-8.2)
[2023-10-06 15:06] VITALS: BP 126/63
== END 2023-10-06 15:10 | disposition home or self-care (01) ==
LOC: ED 12:04
PROVIDERS: Emergency Medicine
DX: I12.9 Hypertensive chronic kidney disease with stage 1 through stage 4 chronic kidney disease, or unspecified chronic kidney disease (principal); R51.9 Headache, unspecified; R07.9 Chest pain, unspecified; E11.22 Type 2 diabetes mellitus with diabetic chronic kidney disease; N18.30 Chronic kidney disease, stage 3 unspecified; Z79.899 Other long term (current) drug therapy; Z79.02 Long term (current) use of antithrombotics/antiplatelets; Z79.4 Long term (current) use of insulin; Z79.82 Long term (current) use of aspirin; Z87.891 Personal history of nicotine dependence
CPT/HCPCS: 36415; 80053; 84484; 85025; 96361; 96374; 99283-25; A9270; J2405; J7030

== ENCOUNTER 2023-10-09 15:41 | Emergency (ER) | payer OTHER ==
[~2023-10-09] VITALS: Ht 157.5 cm; Wt 72.9 kg
--- OUTSIDE RECORDS SUMMARY | 2023-10-09 15:48 | XMS ---
PreManage Notification: CHE BEATTY Security Electronic Technologist Events No recent Security Events currently on file CRITERIA MET - [facility] - 2 Visits in 30 Days CARE PROVIDERS -Sho- Dentist: Cctv Technician [facility] PHONE: [phone] GRETTA BEYER [facility] Current PHONE: Unknown Srinivasan has no Care Guidelines for this patient. Te VISIT COUNT (12 MO.) [address] [place] [address] TOTAL 3 NOTE: Visits indicate total known visits. ED/UCC VISIT TRACKING (12 MO.) 10/09/2023 15:[address] [facility] [place] TYPE: Emergency COMPLAINT: - ABNORMAL LAB RESULTS 10/06/2023 12:06 [facility] TYPE: Emergency COMPLAINT: - HIGH B/P, HEADACHE, VOMITING, SWEATS 02/02/2023 11:43 [facility] [place] TYPE: Emergency COMPLAINT: - ABNORMAL LABS DIAGNOSES: - Allergy status to narcotic agent - Chronic kidney disease, stage 3 unspecified - Contact with and (suspected) exposure to COVID-19 - Hypertensive chronic kidney disease with stage 1 through stage 4 chronic kidney disease, or unspecified chronic kidney disease - econometrician (current) use of aspirin - econometrician (current) use of insulin - Myelodysplastic syndrome, unspecified - Other platform attendant (current) drug therapy - Personal history of nicotine dependence - Type 2 diabetes mellitus with diabetic chronic kidney disease INPATIENT VISIT TRACKING (12 MO.) No inpatient visits to display in this time frame [email or web address]
[2023-10-09 17:33] LABS: BASOPHILS 0.3 % (0-2); EOSINOPHILS 0.2 % (0-6); HEMATOCRIT 45.3 % (35.0-50.0); HEMOGLOBIN 15.5 g/dL (12.0-18.0); LYMPHOCYTES 15.5 % (24-44); MCH 27.8 (27-36); MCHC 34.1 g/dl (30-36); MCV 81.5 fl (81-99); MONOCYTES 5.2 % (0-12); NEUTROPHILS 78.8 % (39-80); PLATELET COUNT 361 K/uL (140-440); RBC 5.56 M/ul (4.3-5.7); RDW 14.2 (10.5-15.0)
[2023-10-09 17:52] LABS: BILIRUBIN, URINE POSITIVE (negative); BLOOD/HGB, URINE NEGATIVE (Negative); KETONE, URINE SMALL (Negative); LEUK ESTERASE, URINE NEGATIVE (negative); NITRITE, URINE NEGATIVE (negative); PH, URINE 5.5 (5-7)
[2023-10-09 18:00] LABS: ALBUMIN 4.2 g/dL (3.4-5.0); ALBUMIN/GLOBULIN RATIO 1.02 (1.1-2.4); ANION GAP 18.9 (7-21); BILIRUBIN, TOTAL 0.6 ng/dL (0.2-1.0); BUN/CREATININE RATIO 30.18 (6.0-28.6); CREATININE, SERUM 1.06 mg/dL (0.55-1.02); POTASSIUM 2.9 mmol/L (3.5-5.1); PROTEIN, TOTAL 8.3 g/dL (6.4-8.2)
[2023-10-09 18:01] LABS: BACTERIA, URINE RARE /hpf (negative); CASTS, URINE NONE SEEN \\lpf; COLLECTION TYPE, URINE CLEAN CATCH; CRYSTALS, URINE NONE SEEN (0-1+); EPITHELIAL CELLS, URINE SQUAMOUS 2+ /lpf (0-1+); REFLEX CULTURE, URINE No (No)
[2023-10-09 18:31] LABS: PROTEIN, CSF 37 mg/dL (15-45)
[2023-10-09 19:52] LABS: CLARITY, CEREBROSPINAL FLUID CLEAR; COLOR, CEREBROSPINAL FLUID COLORLESS; RBC, CEREBROSPINAL FLUID 0
[2023-10-09] MEDS ORDERED: K-TAB ER20 MEQ PO ×2 (20:04→21:17)
[2023-10-09 22:08] VITALS: BP 128/76
== END 2023-10-09 22:08 | disposition home or self-care (01) ==
LOC: ED 15:41
PROVIDERS: Emergency Medicine
DX: R51.9 Headache, unspecified (principal); E87.6 Hypokalemia; D72.829 Elevated white blood cell count, unspecified; I12.9 Hypertensive chronic kidney disease with stage 1 through stage 4 chronic kidney disease, or unspecified chronic kidney disease; E11.22 Type 2 diabetes mellitus with diabetic chronic kidney disease; N18.30 Chronic kidney disease, stage 3 unspecified; Z88.5 Allergy status to narcotic agent; Z79.899 Other long term (current) drug therapy; Z79.82 Long term (current) use of aspirin; Z79.02 Long term (current) use of antithrombotics/antiplatelets; Z79.4 Long term (current) use of insulin; Z87.891 Personal history of nicotine dependence
CPT/HCPCS: 36415; 70450; 71045; 80053; 81001; 82947; 83605; 84157; 85025; 87205; 89051; A9270; J1170; J2405; J3480; J7030

== ENCOUNTER 2025-08-27 15:10 | Emergency (ER) | payer OTHER ==
[~2025-08-27] VITALS: Ht 157.5 cm; Wt 80.0 kg
--- OUTSIDE RECORDS SUMMARY | ~2025-08-27 | XMS | Continuity of Care Document ---
Demographics + + + | Address | [address] | | | [place] [address] | + + + | Preferred Language | Unknown | + + + | Marital Status | | + + + | Scientologist Affiliation | Unknown | + + + | Race | White | + + + | Ethnic Group | Not or | + + + Author + + + | Author | [facility] | + + + | Organization | [facility] | + + + | Address | [address] | | | [place] [address] | + + + | Phone | | + + + Care Team Providers + + + + | Care Crew Scheduler Name | Role | Phone | + + + + Unavailable | Unavailable | + + + + Unavailable | Unavailable | + + + + Unavailable | Unavailable | + + + + Allergies No information. Encounters No information. Functional Status No information. Immunizations No information. Medications + + + + | date | description | facility | + + + + | (no date) | DIPHENHYDRAMINE HCL | [facility] | | | | [facility] | + + + + | (no date) | DIPHENHYDRAMINE HCL | [facility] | | | | [facility] | + + + + | (no date) | DIPHENHYDRAMINE HCL | [facility] | | | | [facility] | + + + + | (no date) | GABAPENTIN | [facility] | | | | [facility] | + + + + | (no date) | GABAPENTIN | [facility] | | | | [facility] | + + + + | (no date) | GABAPENTIN | [facility] | | | | [facility] | + + + + | (no date) | Ergocalciferol (Vitamin | [facility] | | | D2) | [facility] | + + + + | (no date) | Ergocalciferol (Vitamin | [facility] | | | D2) | [facility] | + + + + | (no date) | Ergocalciferol (Vitamin | [facility] | | | D2) | [facility] | + + + + | (no date) | IPRATROPIUM/ALBUTEROL | [facility] | | | SULFATE | [facility] | + + + + | (no date) | IPRATROPIUM/ALBUTEROL | [facility] | | | SULFATE | [facility] | + + + + | (no date) | IPRATROPIUM/ALBUTEROL | [facility] | | | SULFATE | [facility] | + + + + | (no date) | MELOXICAM | [facility] | | | | [facility] | + + + + | (no date) | MELOXICAM | [facility] | | | | [facility] | + + + + | (no date) | MELOXICAM | [facility] | | | | [facility] | + + + + | (no date) | INSULIN ASPART | [facility] | | | | [facility] | + + + + | (no date) | INSULIN ASPART | [facility] | | | | [facility] | + + + + | (no date) | INSULIN ASPART | [facility] | | | | [facility] | + + + + | (no date) | TOPIRAMATE | [facility] | | | | [facility] | + + + + | (no date) | TOPIRAMATE | [facility] | | | | [facility] | + + + + | (no date) | TOPIRAMATE | [facility] | | | | [facility] | + + + + | (no date) | CIPROFLOXACIN HCL | [facility] | | | | [facility] | + + + + | (no date) | CIPROFLOXACIN HCL | [facility] | | | | [facility] | + + + + | (no date) | CIPROFLOXACIN HCL | [facility] | | | | [facility] | + + + + | (no date) | NAPROXEN | [facility] | | | | [facility] | + + + + | (no date) | NAPROXEN | [facility] | | | | [facility] | + + + + | (no date) | NAPROXEN | [facility] | | | | [facility] | + + + + | (no date) | OMEPRAZOLE | [facility] | | | | [facility] | + + + + | (no date) | OMEPRAZOLE | [facility] | | | | [facility] | + + + + | (no date) | OMEPRAZOLE | [facility] | | | | [facility] | + + + + | (no date) | SUCRALFATE | [facility] | | | | [facility] | + + + + | (no date) | SUCRALFATE | [facility] | | | | [facility] | + + + + | (no date) | SUCRALFATE | [facility] | | | | [facility] | + + + + | (no date) | Semaglutide | [facility] | | | | [facility] | + + + + | (no date) | Semaglutide | [facility] | | | | [facility] | + + + + | (no date) | Semaglutide | [facility] | | | | [facility] | + + + + | (no date) | AMLODIPINE BESYLATE | [facility] | | | | [facility] | + + + + | (no date) | AMLODIPINE BESYLATE | [facility] | | | | [facility] | + + + + | (no date) | AMLODIPINE BESYLATE | [facility] | | | | [facility] | + + + + | (no date) | ASPIRIN | [facility] | | | | [facility] | + + + + | (no date) | ASPIRIN | [facility] | | | | [facility] | + + + + | (no date) | ASPIRIN | [facility] | | | | [facility] | + + + + | (no date) | CLOPIDOGREL BISULFATE | [facility] | | | | [facility] | + + + + | (no date) | CLOPIDOGREL BISULFATE | [facility] | | | | [facility] | + + + + | (no date) | CLOPIDOGREL BISULFATE | [facility] | | | | [facility] | + + + + | (no date) | Tetracycline HCl | [facility] | | | | [facility] | + + + + | (no date) | Tetracycline HCl | [facility] | | | | [facility] | + + + + | (no date) | Tetracycline HCl | [facility] | | | | [facility] | + + + + | (no date) | LISINOPRIL | [facility] | | | | [facility] | + + + + | (no date) | LISINOPRIL | [facility] | | | | [facility] | + + + + | (no date) | LISINOPRIL | [facility] | | | | [facility] | + + + + | (no date) | LORATADINE | [facility] | | | | [facility] | + + + + | (no date) | LORATADINE | [facility] | | | | [facility] | + + + + | (no date) | LORATADINE | [facility] | | | | [facility] | + + + + | (no date) | ALBUTEROL SULFATE | [facility] | | | | [facility] | + + + + | (no date) | ALBUTEROL SULFATE | [facility] | | | | [facility] | + + + + | (no date) | ALBUTEROL SULFATE | [facility] | | | | [facility] | + + + + | (no date) | Rosuvastatin Calcium | [facility] | | | | [facility] | + + + + | (no date) | Rosuvastatin Calcium | [facility] | | | | [facility] | + + + + | (no date) | Rosuvastatin Calcium | [facility] | | | | [facility] | + + + + | (no date) | OXYBUTYNIN CHLORIDE | [facility] | | | | [facility] | + + + + | (no date) | OXYBUTYNIN CHLORIDE | [facility] | | | | [facility] | + + + + | (no date) | OXYBUTYNIN CHLORIDE | [facility] | | | | [facility] | + + + + | (no date) | buPROPion HCL | [facility] | | | | [facility] | + + + + | (no date) | buPROPion HCL | [facility] | | | | [facility] | + + + + | (no date) | buPROPion HCL | [facility] | | | | [facility] | + + + + | (no date) | BUPROPION HCL | [facility] | | | | [facility] | + + + + | (no date) | BUPROPION HCL | [facility] | | | | [facility] | + + + + | (no date) | BUPROPION HCL | [facility] | | | | [facility] | + + + + | (no date) | HYDROXYZINE HCL | [facility] | | | | [facility] | + + + + | (no date) | HYDROXYZINE HCL | [facility] | | | | [facility] | + + + + | (no date) | HYDROXYZINE HCL | [facility] | | | | [facility] | + + + + | (no date) | HYDROXYZINE PAMOATE | [facility] | | | | [facility] | + + + + | (no date) | HYDROXYZINE PAMOATE | [facility] | | | | [facility] | + + + + | (no date) | HYDROXYZINE PAMOATE | [facility] | | | | [facility] | + + + + Problems No information. Procedures No information. Results/Labs +--------+--------+ +---------+--------+---------+ | test | date | facility | value | unit | notes | +--------+--------+ +---------+--------+---------+ + + | Result panel 1 | + + + + + +--------+ + + | WBC # Bld | 2025-06-12 | | 9.45 | (missing) | (missing) | | Auto | 11:09:07 [facility] | | | | [facility] | | | | + + + +--------+ + + + + | Result panel 2 | + + + + + +--------+ + + | Lymphocytes | 2025-06-12 | | 30.8 | (missing) | (missing) | | NFr Bld | 11:: | [facility] | | | | | [facility] | | | | + + + +--------+ + + + + | Result panel 3 | + + + + + +-------+ + + | Monocytes | 2025-06-12 | | 5.9 | (missing) | (missing) | | NFr Bld Auto | 11::07 | [facility] | | | | + + + +-------+ + + + + | Result panel 4 | + + + + + +-------+ + + | Eosinophil | 2025-06-12 | | 1.4 | (missing) | (missing) | | NFr Bld Auto | 11:09:07 | [facility] | | | | + + + +-------+ + + + + | Result panel 5 | + + + + + +-------+ + + | Basophils | 2025-06-12 | | 0.6 | (missing) | (missing) | | NFr Bld Auto | 11::07 | [facility] | | | | + + + +-------+ + + + + | Result panel 6 | + + + + + +-------+---------+ + | Glucose | 2025-06-12 | | 101 | mg/dL | (missing) | | SerPl-mCnc | 11:09:07 | [facility] | | | | + + + +-------+---------+ + + + | Result panel 7 | + + + + + +------+---------+ + | BUN | 2025-06-12 | | 19 | mg/dL | (missing) | | [facility] | 11::07 | [facility] | | | | + + + +------+---------+ + + + | Result panel 8 | + + + + + +--------+---------+ + | Creat | 2025-06-12 | | 0.99 | mg/dL | (missing) | | Kamini | 11::07 | [facility] | | | | + + + +--------+---------+ + + + | Result panel 9 | + + + + + +------+ + + | eGFRcr | 2025-06-12 | | 69 | (missing) | (missing) | | SerPlBld | 11:: | [facility] | | | | | CKD-EPI 2020 | [facility] | | | | + + + +------+ + + + + | Result panel 10 | + + + + + +---------+ + + | BUN/Creat | 2025-06-12 | | 19.19 | (missing) | (missing) | | SerPl | 11:: | [facility] | | | | + + + +---------+ + + + + | Result panel 11 | + + + + + +-------+ + + | Sodium | 2025-06-12 | | 140 | (missing) | (missing) | | SerPl-sCnc | 11::07 | [facility] | | | | + + + +-------+ + + + + | Result panel 12 | + + + + + +--------+ + + | RBC # Bld | 2025-06-12 | | 5.14 | (missing) | (missing) | | Auto | 11:09:07 | [facility] | | | | + + + +--------+ + + + + | Result panel 13 | + + + + + +-------+ + + | Potassium | 2025-06-12 | | 3.6 | (missing) | (missing) | | [facility] | 11:09:07 | [facility] | | | | + + + +-------+ + + + + | Result panel 14 | + + + + + +-------+ + + | Chloride | 2025-06-12 | | 104 | (missing) | (missing) | | SerPl-sCnc | 11:: | [facility] | | | | + + + +-------+ + + + + | Result panel 15 | + + + + + +------+ + + | CO2 | 2025-06-12 | | 28 | (missing) | (missing) | | SerPl-sCnc | 11:: | [facility] | | | | + + + +------+ + + + + | Result panel 16 | + + + + + +--------+ + + | Anion Gap | 2025-06-12 | | 11.6 | (missing) | (missing) | | SerPl | : | [facility] | | | | | Calculated.4 | [facility] Ions-s[facility]nc | | [facility] | | | | + + + +--------+ + + + + | Result panel 17 | + + + + + +-------+---------+ + | Calcium | 2025-06-12 | | 9.3 | mg/dL | (missing) | | SerPl-mCnc | : | [facility] | | | | + + + +-------+---------+ + + + | Result panel 18 | + + + + + +-------+ + + | Prot | 2025-06-12 | | 8.3 | (missing) | (missing) | | SerPl-mCnc | 11::07 | [facility] | | | | + + + +-------+ + + + + | Result panel 19 | + + + + + +-------+ + + | Albumin | 2025-06-12 | | 4.2 | (missing) | (missing) | | SerPl-mCnc | 11::07 | [facility] | | | | + + + +-------+ + + + + | Result panel 20 | + + + + + +-------+ + + | Globulin | 2025-06-12 | | 4.1 | (missing) | (missing) | | Ser-mCnc | 11::07 | [facility] | | | | + + + +-------+ + + + + | Result panel 21 | + + + + + +--------+ + + | | 2025-06-12 | | 1.02 | (missing) | (missing) | | Albumin/Glob | 11:09:07 | [facility] | | | | | [facility] | | | | + + + +--------+ + + + + | Result panel 22 | + + + + + +-------+---------+ + | Bilmickieub | 2025-06-12 | | 0.3 | mg/dL | (missing) | | SerPl-mCnc | 11:09:07 | [facility] | | | | + + + +-------+---------+ + + + | Result panel 23 | + + + + + +--------+ + + | Hgb | 2025-06-12 | | 14.5 | (missing) | (missing) | | Bld-mCnc | 11:: | [facility] | | | | + + + +--------+ + + + + | Result panel 24 | + + + + + +------+ + + | AST | 2025-06-12 | | 16 | (missing) | (missing) | | SerPl-cCnc | 11:: | [facility] | | | | + + + +------+ + + + + | Result panel 25 | + + + + + +------+ + + | ALT | 2025-06-12 | | 19 | (missing) | (missing) | | SerPl-cCnc | 11:: | [facility] | | | | + + + +------+ + + + + | Result panel 26 | + + + + + +-------+ + + | ALP | 2025-06-12 | | 105 | (missing) | (missing) | | SerPl-cCnc | 11:: | [facility] | | | | + + + +-------+ + + + + | Result panel 27 | + + + + + +--------+ + + | Hct VFr.DF | 2025-06-12 | | 42.2 | (missing) | (missing) | | Bld Auto | : | [facility] | | | | | | | - | | | | | | | [facility] | | | | + + + +--------+ + + + + | Result panel 28 | + + + + + +--------+ + + | RBC Auto | 2025-06-12 | | 82.1 | (missing) | (missing) | | | : | [facility] | | | | + + + +--------+ + + + + | Result panel 29 | + + + + + +--------+ + + | MCH RBC Qn | 2025-06-12 | | 28.2 | (missing) | (missing) | | Auto | 11:: | [facility] | | | | + + + +--------+ + + + + | Result panel 30 | + + + + + +--------+ + + | MCHC RBC | 2025-06-12 | | 34.4 | (missing) | (missing) | | Auto-EntMCnc | 11:09:07 | [facility] | | | | + + + +--------+ + + + + | Result panel 31 | + + + + + +-------+ + + | Platelet # | 2025-06-12 | | 276 | (missing) | (missing) | | Bld Auto | 11:09:07 | [facility] | | | | + + + +-------+ + + + + | Result panel 32 | + + + + + +--------+ + + | Neutrophils | 2025-06-12 | | 60.8 | (missing) | (missing) | | NFr Bld | 11:09:07 | [facility] | | | | [facility] | [facility] | | | | + + + +--------+ + + Social History +--------+ + + | date | description | facility | +--------+ + + Vital Signs No information."
[~2025-08-27 15:10] MED LIST changes: +AMLODIPINE BESY10 MG PO; +BENADRYL25 MG PO; +CARAFATE1 GM PO; +CLARITIN10 M2 PO; +HYDROXYZINE HCL10 MG PO; +K-TAB ER20 MEQ PO; +LIDOCAINE1 EACH TD; +MELOXICAM15 MG PO; +NAPROXEN250 MG PO; +NEURONTIN300 MG PO; +NOVOLOG100 UNIT/1 SUB-Q; -NOVOLOG100 UNIT/2 SUB-Q; +OMEPRAZOLE20 MG PO; +OXYBUTYNIN CHLOR5 MG PO; +TETRACYCLINE H500 M1 PO; +TOPIRAMATE ER25 MG PO; +VISTARIL25 MG PO
[2025-08-27] MEDS ORDERED: KETOROLAC TROMETHAMINE 30 MG/ML VIAL IM ONE (15:45)
[2025-08-27] MEDS ORDERED: AIMOVIG AU140 MG/1 M (15:50)
[2025-08-27 16:47] VITALS: BP 120/71
== END 2025-08-27 16:30 | disposition home or self-care (01) ==
LOC: ED 15:10
DX: M71.21 Synovial cyst of popliteal space [Baker], right knee (principal); E11.22 Type 2 diabetes mellitus with diabetic chronic kidney disease; I12.9 Hypertensive chronic kidney disease with stage 1 through stage 4 chronic kidney disease, or unspecified chronic kidney disease; N18.30 Chronic kidney disease, stage 3 unspecified; J45.909 Unspecified asthma, uncomplicated; Z86.73 Personal history of transient ischemic attack (TIA), and cerebral infarction without residual deficits; Z87.891 Personal history of nicotine dependence; Z88.5 Allergy status to narcotic agent; Z79.4 Long term (current) use of insulin; Z79.82 Long term (current) use of aspirin; Z79.85 Long-term (current) use of injectable non-insulin antidiabetic drugs; Z79.899 Other long term (current) drug therapy
CPT/HCPCS: 96372; 99283-25; J1885